=== PATIENT | female | born 1960 | race Caucasian/White ===

== ENCOUNTER 2022-06-26 19:15 | Inpatient (IN) | payer OTHER ==
[~2022-06-26] VITALS: Ht 165.1 cm; Wt 136.5 kg
[2022-06-26 21:03] LABS: CHLORIDE 107 mEq/L (98-107)
[2022-06-26 21:06] LABS: PROTHROMBIN TIME 10.9 sec (9.6-11.0)
[2022-06-26 21:13] LABS: BASOPHILS % 0.3 % (0.0-2.0); EOSINOPHILS % 1.8 % (0.0-5.0); HEMOGLOBIN. 13.4 g/dL (12.0-16.0); LYMPHOCYTES % 9.2 % (20.0-50.0); MEAN CORPUSCULAR HEMOGLOBIN 26.2 pg (28.0-32.0); MEAN CORPUSCULAR VOLUME 82.1 fL (81.0-99.0); MEAN PLATELET VOLUME 10.2 fl (7.4-10.4); MONOCYTES % 3.6 % (2.0-8.0); NEUTROPHILS % 85.1 % (40.0-76.0); PLATELET 302 x1000/uL (130-400); RED BLOOD CELL COUNT 5.11 mill/uL (4.2-5.4); RED CELL DISTRIBUTION WIDTH 16.2 % (11.6-14.6)
[2022-06-26] MEDS ORDERED: ONDANSETRON HCL 4MG/2ML INJ IV ONE (23:15)
[2022-06-26] MEDS ORDERED: MORPHINE SULFATE 4 MG/ML CPJ (NOT FOR IM USE) IV ONE (23:15)
[2022-06-26] MEDS ORDERED: SODIUM CHLORIDE 0.9% 1,000 ML IV ONE (23:15)
[2022-06-26] MEDS ORDERED: METRONIDAZOLE 500 MG PREMIX 100 ML IV ONE (23:15)
[2022-06-26] MEDS ORDERED: CEFTRIAXONE 1 G PREMIX 50 ML IV ONE (23:15)
[2022-06-27] MEDS ORDERED: ACETAMINOPHEN 650MG SUPP PR PRN ×2 (02:45)
[2022-06-27] MEDS ORDERED: ACETAMINOPHEN 325MG TABLET PO PRN ×2 (02:45)
[2022-06-27] MEDS ORDERED: MAGNESIUM/ALUMINUM HYDROXIDE/SIMETHICONE 30ML UDC PO PRN (02:45)
[2022-06-27] MEDS ORDERED: DOCUSATE SODIUM 100MG CAPSULE PO PRN (02:45)
[2022-06-27] MEDS ORDERED: IPRATROPIUM/ALBUTEROL 0.5-3(2.5)MG/3ML NEB HHN PRN (02:45)
[2022-06-27] MEDS ORDERED: GUAIFENESIN 200MG/10ML SUGAR FREE UDC PO PRN (02:45)
[2022-06-27] MEDS: DEXT 5%/0.45% NACL 1000ML 1,000 ML IV SCH ×2 (02:45→14:31)
[2022-06-27] MEDS ORDERED: HYDRALAZINE 20MG/ML VIAL IV PRN (02:45)
[2022-06-27] MEDS: AMLODIPINE 10MG TABLET PO SCH (02:45)
[2022-06-27] MEDS ORDERED: LORAZEPAM 0.5MG TABLET PO PRN (02:45)
[2022-06-27] MEDS ORDERED: MORPHINE SULFATE 2 MG/ML CPJ (NOT FOR IM USE) IV PRN (02:45)
[2022-06-27] MEDS ORDERED: CLONIDINE 0.1MG TABLET PO PRN (02:45)
[2022-06-27] MEDS ORDERED: LEVOFLOXACIN 500MG PREMIX 100 ML IV SCH (04:00)
[2022-06-27 04:58] LABS: BASOPHILS % 0.5 % (0.0-2.0); EOSINOPHILS % 0.5 % (0.0-5.0); HEMATOCRIT. 33.8 % (36.0-48.0); HEMOGLOBIN. 10.5 g/dL (12.0-16.0); LYMPHOCYTES % 12.7 % (20.0-50.0); MEAN CORPUSCULAR HEMOGLOBIN 26.5 pg (28.0-32.0); MEAN CORPUSCULAR VOLUME 85.3 fL (81.0-99.0); MEAN PLATELET VOLUME 10.1 fl (7.4-10.4); MONOCYTES % 5.3 % (2.0-8.0); PLATELET 234 x1000/uL (130-400); RED BLOOD CELL COUNT 3.96 mill/uL (4.2-5.4); RED CELL DISTRIBUTION WIDTH 16.3 % (11.6-14.6)
[2022-06-27] MEDS ORDERED: METRONIDAZOLE 500 MG PREMIX 100 ML IV SCH (06:00)
[2022-06-27] MEDS: ONDANSETRON HCL 4MG/2ML INJ IV PRN (11:05)
[2022-06-27] MEDS: ENOXAPARIN 40MG/0.4ML SYR SUBCUT SCH ×2 (11:06→21:10)
[2022-06-27 12:00] VITALS: BP 136/75
[2022-06-27 13:26] VITALS: BP 136/75
[2022-06-27] MEDS ORDERED: NALOXONE HCL 0.4MG/ML VIAL IV PRN (14:00)
[2022-06-27] MEDS: METRONIDAZOLE 500 MG PREMIX 100 ML IV SCH ×2 (15:24→21:10)
[2022-06-27 16:00] VITALS: BP 155/60
[2022-06-27 19:24] LABS: CHLORIDE 104 mEq/L (98-107)
[2022-06-27 19:41] LABS: HDL CHOLESTEROL 51 mg/dL (40-59); LDL CHOLESTEROL 79 mg/dL (5-100)
[2022-06-27 20:00] VITALS: BP 134/54
[2022-06-27] MEDS: HYDROCODONE/ACETAMINOPHEN 5/325MG TABLET PO PRN (21:16)
[2022-06-28] VITALS: BP_SYST 119; BP_SYST 159; BP_DIAS 54; BP_DIAS 69
[2022-06-28] MEDS ORDERED: DEXTROSE 50% WATER 50ML SYRINGE IV PRN (02:00)
[2022-06-28] MEDS: DEXT 5%/0.45% NACL 1000ML 1,000 ML IV SCH ×2 (02:28→15:48)
[2022-06-28 04:00] VITALS: BP 119/69
[2022-06-28] MEDS: METRONIDAZOLE 500 MG PREMIX 100 ML IV SCH ×3 (05:23→21:10)
[2022-06-28] MEDS: LEVOFLOXACIN 500MG PREMIX 100 ML IV SCH (06:28)
[2022-06-28] MEDS: BLOOD SUGAR DIAGNOSTIC STRIP TEST SCH ×4 (06:28→21:09)
[2022-06-28 07:50] LABS: BASOPHILS % 0.9 % (0.0-2.0); EOSINOPHILS % 4.6 % (0.0-5.0); HEMOGLOBIN. 12.4 g/dL (12.0-16.0); LYMPHOCYTES % 19.9 % (20.0-50.0); MEAN CORPUSCULAR VOLUME 81.9 fL (81.0-99.0); MEAN PLATELET VOLUME 10.2 fl (7.4-10.4); MONOCYTES % 10.1 % (2.0-8.0); NEUTROPHILS % 64.5 % (40.0-76.0); PLATELET 270 x1000/uL (130-400); RED BLOOD CELL COUNT 4.76 mill/uL (4.2-5.4); RED CELL DISTRIBUTION WIDTH 16.2 % (11.6-14.6)
[2022-06-28] MEDS: INSULIN LISPRO 100 UNITS/ML SUBCUT SCH ×4 (07:50→21:00)
[2022-06-28 07:59] LABS: CHLORIDE 104 mEq/L (98-107)
[2022-06-28 08:00] VITALS: BP 149/53
[2022-06-28 08:12] LABS: GAMMA GLUTAMYL TRANSPEPTIDASE 16 IU/L (7-32)
[2022-06-28] MEDS: AMLODIPINE 10MG TABLET PO SCH (09:03)
[2022-06-28] MEDS: ENOXAPARIN 40MG/0.4ML SYR SUBCUT SCH ×2 (09:04→21:10)
[2022-06-28 12:28] VITALS: BP 152/62
[2022-06-28 16:00] VITALS: BP 150/58
[2022-06-28 20:00] VITALS: BP 141/60
[2022-06-28] MEDS ORDERED: POTASSIUM CHLORIDE 20MEQ TABLET SR PO NR (20:15)
[2022-06-28] MEDS: HYDROCODONE/ACETAMINOPHEN 5/325MG TABLET PO PRN (21:08)
[2022-06-29] VITALS: BP 150/58
[2022-06-29] MEDS: DEXT 5%/0.45% NACL 1000ML 1,000 ML IV SCH ×2 (01:29→13:35)
[2022-06-29 04:00] VITALS: BP 142/60
[2022-06-29] MEDS: METRONIDAZOLE 500 MG PREMIX 100 ML IV SCH ×3 (04:59→21:47)
[2022-06-29 05:36] LABS: CLARITY URINE CLEAR (CLEAR); COLOR URINE YELLOW (YELLOW); KETONES URINE 1+ (NEGATIVE); LEUKOCYTE ESTERASE URINE 1+ (NEGATIVE); NITRITE URINE NEGATIVE (NEGATIVE); OCCULT BLOOD URINE TRACE (NEGATIVE); PROTEIN URINE TRACE (NEGATIVE); SPECIFIC GRAVITY URINE 1.016 (1.005-1.030)
[2022-06-29] MEDS: LEVOFLOXACIN 500MG PREMIX 100 ML IV SCH (06:38)
[2022-06-29 06:44] LABS: CHLORIDE 103 mEq/L (98-107)
[2022-06-29 06:54] LABS: BASOPHILS % 0.7 % (0.0-2.0); EOSINOPHILS % 2.7 % (0.0-5.0); HEMATOCRIT. 41.8 % (36.0-48.0); HEMOGLOBIN. 13.3 g/dL (12.0-16.0); LYMPHOCYTES % 17.8 % (20.0-50.0); MEAN CORPUSCULAR HEMOGLOBIN 26.2 pg (28.0-32.0); MEAN CORPUSCULAR VOLUME 81.9 fL (81.0-99.0); MEAN PLATELET VOLUME 10.2 fl (7.4-10.4); MONOCYTES % 7.6 % (2.0-8.0); NEUTROPHILS % 71.2 % (40.0-76.0); PLATELET 286 x1000/uL (130-400)
[2022-06-29] MEDS: BLOOD SUGAR DIAGNOSTIC STRIP TEST SCH ×4 (06:57→21:47)
[2022-06-29] MEDS: INSULIN LISPRO 100 UNITS/ML SUBCUT SCH ×4 (07:50→21:00)
[2022-06-29 07:57] VITALS: BP 142/60
[2022-06-29] MEDS: AMLODIPINE 10MG TABLET PO SCH (08:42)
[2022-06-29] MEDS: ENOXAPARIN 40MG/0.4ML SYR SUBCUT SCH ×2 (08:43→21:47)
[2022-06-29 11:56] VITALS: BP 138/62
[2022-06-29 15:54] VITALS: BP 132/66
[2022-06-29 20:00] VITALS: BP 100/52
[2022-06-30] VITALS (8 sets, daily range): BP systolic 97–156; BP diastolic 46–75
[2022-06-30] MEDS: DEXT 5%/0.45% NACL 1000ML 1,000 ML IV SCH ×2 (00:55→13:56)
[2022-06-30] MEDS: ONDANSETRON HCL 4MG/2ML INJ IV PRN (00:59)
[2022-06-30] MEDS: METRONIDAZOLE 500 MG PREMIX 100 ML IV SCH ×3 (05:24→21:04)
[2022-06-30] MEDS: LEVOFLOXACIN 500MG PREMIX 100 ML IV SCH (06:17)
[2022-06-30] MEDS: BLOOD SUGAR DIAGNOSTIC STRIP TEST SCH ×4 (06:55→21:04)
[2022-06-30] MEDS: INSULIN LISPRO 100 UNITS/ML SUBCUT SCH ×4 (07:50→21:00)
[2022-06-30 08:15] LABS: BASOPHILS % 0.7 % (0.0-2.0); EOSINOPHILS % 2.9 % (0.0-5.0); HEMATOCRIT. 40.7 % (36.0-48.0); HEMOGLOBIN. 13.1 g/dL (12.0-16.0); LYMPHOCYTES % 18.1 % (20.0-50.0); MEAN CORPUSCULAR HEMOGLOBIN 26.1 pg (28.0-32.0); MEAN CORPUSCULAR VOLUME 81.3 fL (81.0-99.0); MONOCYTES % 5.9 % (2.0-8.0); NEUTROPHILS % 72.4 % (40.0-76.0); PLATELET 300 x1000/uL (130-400); RED BLOOD CELL COUNT 5.01 mill/uL (4.2-5.4); RED CELL DISTRIBUTION WIDTH 15.9 % (11.6-14.6)
[2022-06-30 08:47] LABS: CHLORIDE 103 mEq/L (98-107)
[2022-06-30] MEDS: ENOXAPARIN 40MG/0.4ML SYR SUBCUT SCH ×2 (10:19→21:04)
[2022-06-30] MEDS: AMLODIPINE 10MG TABLET PO SCH (10:19)
[2022-06-30] MEDS ORDERED: LEVO500T90 MT (16:00)
[2022-06-30] MEDS ORDERED: AMLO10TA80 PO (16:00)
[2022-06-30] MEDS ORDERED: METR-167 MT (16:00)
[2022-07-01] MEDS: DEXT 5%/0.45% NACL 1000ML 1,000 ML IV SCH (01:49)
[2022-07-01 04:00] VITALS: BP 111/55
[2022-07-01] MEDS: METRONIDAZOLE 500 MG PREMIX 100 ML IV SCH (05:49)
[2022-07-01] MEDS: BLOOD SUGAR DIAGNOSTIC STRIP TEST SCH (06:25)
[2022-07-01] MEDS: LEVOFLOXACIN 500MG PREMIX 100 ML IV SCH (06:41)
[2022-07-01] MEDS: INSULIN LISPRO 100 UNITS/ML SUBCUT SCH (07:44)
[2022-07-01 08:00] VITALS: BP_SYST 120; BP_SYST 143; BP_DIAS 50; BP_DIAS 75
[2022-07-01 08:40] LABS: CHLORIDE 105 mEq/L (98-107)
[2022-07-01 08:42] LABS: EOSINOPHILS % 5.1 % (0.0-5.0); HEMATOCRIT. 38.9 % (36.0-48.0); HEMOGLOBIN. 12.6 g/dL (12.0-16.0); LYMPHOCYTES % 27.5 % (20.0-50.0); MEAN CORPUSCULAR HEMOGLOBIN 26.1 pg (28.0-32.0); MEAN CORPUSCULAR VOLUME 80.8 fL (81.0-99.0); MEAN PLATELET VOLUME 10.3 fl (7.4-10.4); MONOCYTES % 7.8 % (2.0-8.0); NEUTROPHILS % 58.6 % (40.0-76.0); PLATELET 296 x1000/uL (130-400); RED BLOOD CELL COUNT 4.82 mill/uL (4.2-5.4); RED CELL DISTRIBUTION WIDTH 15.8 % (11.6-14.6)
[2022-07-01] MEDS: ENOXAPARIN 40MG/0.4ML SYR SUBCUT SCH (08:56)
[2022-07-01] MEDS: AMLODIPINE 10MG TABLET PO SCH (08:57)
== END 2022-07-01 10:37 | disposition home or self-care (01) ==
LOC: ER 19:15 → MICUSO 06-27 00:57 → EDBEDREQSVC 06-27 07:15 → 6WST 06-27 13:44
PROVIDERS: ADMIT Family Medicine Adult Medicine; ATTEND Family Medicine Adult Medicine
DX: K80.00 Calculus of gallbladder with acute cholecystitis without obstruction (principal); K76.0 Fatty (change of) liver, not elsewhere classified; D72.829 Elevated white blood cell count, unspecified; E78.5 Hyperlipidemia, unspecified; H91.3 Deaf nonspeaking, not elsewhere classified; I16.0 Hypertensive urgency; I10 Essential (primary) hypertension; K59.00 Constipation, unspecified
CPT/HCPCS: 36415; 71045; 74176; 74181; 76700; 80048; 80053; 80061; 80076; 81003; 82962; 82977; 83036; 83880; 84443; 84484; 85025; 97162; 97166; 99285; J0360; J0696; J1650; J1815; J1956; J2270; J2405; J3490; J7030